=== PATIENT | female | born 1950 | race Caucasian/White ===

== ENCOUNTER → 2020-10-16 12:54 | Outpatient (CLI) | payer MEDICARE, MEDICAID, SELFPAY ==
--- NOTE | 2020-10-16 | DI.RAD.S_ITS ---
PROCEDURE: FL BARIUM SWALLOW W SPEECH INDICATIONS: Other specified symptoms and signs involving the c COMPARISON: None. TECHNIQUE: Examination was conducted in conjunction with speech pathology per standard protocol. In the lateral projection, filming was performed of the patient swallowing. AP projection filming may also be performed with patient swallowing. COMPARISON: FINDINGS: Function: The oral preparatory phase appears normal, with proper containment. The subsequent oral propulsive phase, pharyngeal phase, and esophageal phase of swallowing also appear normal with all proffered substances. No laryngotracheal penetration or aspiration. No pathologic vallecular pooling. Morphology: No cricopharyngeal bar is identified. No cervical esophageal webs. No Zenker's diverticulum. No strictures. IMPRESSION: No abnormality found. Please also refer to the dedicated speech therapy swallowing evaluation report, which will be independently generated. Dictated by: Raciel Reina M.D. on 10/16/2020 at 16:26 Approved by: Raciel Reina M.D. on 10/16/2020 at 16:27
--- NOTE | 2020-10-16 15:42 | ST.SWALLOW ---
Visit Care Team Role Provider Type Darya Knox Referring Provider Non-Staff Specialty: Massage Therapy Address: [address], [place], [address] Email: Manuel Blanco MD Primary Care Provider Non-Staff Specialty: Internal Medicine Address: [facility], [address] [place] [address] [address], [place], [address] Email: JACEK Juarez Attending Provider Speech Therapist Specialty: Speech Therapy Address: Phone: Fax: Email: Modified Barium Swallow Study [employer] Modified Barium Swallow Study Start: 10/16/20 14:03 Freq: Status: Active Protocol: Document 10/16/20 14:06 MG (Rec: 10/16/20 14:36 MG [id number]) Modified Barium Swallow Study Total Time Visit Start Time 13:25 Visit Stop Time 13:45 Total Visit Minutes 20 Visit Information Visit Number 1 Setting Setting Outpatient Care Patient Information Identification Type Name Patient History Pt is a 70 year old female who presents today for a modified barium swallow study (MBSS). Pt reports that she has been fearful of swallowing for over a year; she gets sensations of something stuck in her throat. Pt has modified her own diet and currently implementing safe swallowing strategies (i.e., minimize distractions, small bites/sips ). Pt reports that she feels fearful of eating as she has had instances in the past where she has coughed/choked on food. Pt currently tolerates thin liquids and a dysphagia mechanical diet. Subjective Observations Pt was sitting in chair placement for MBSS. Pt was agreeable to answering questions from the [employer]. Of note, pt was not wearing dentures at this time, reporting that she has tried them before and feels like there is no room in her mouth. Pt also has an enlarged tongue, as noted from OME performed. Pt reports that she has always had a larger tongue. Patient Positioning Position View Lateral Imaging Lateral View Textures Administered Trials Presented Thin Liquid via Spoon,Thin Liquid via Cup,[place] Liquid via Cup,Pudding Thick Liquid via Spoon Oral Phase Source: MBSIMP (TM) (C) Bolus Specific Scoring Grid Lip Closure WFL Tongue Control During Bolus Hold WFL Bolus Prep/Mastication WFL Bolus Transport/Lingual Motion WFL A/P Lingual Propulsion Delay No Oral Residue Moderate Impairment Residue Clearing Minimal Impairment Nasal Regurgitation No Additional Oral Phase Observations Formal OME was conducted prior to the MBSS. Pt's oral integrity appears in tact and she presents with adequate strength and range of motion. Of note, moderate oral residue was noted on most trials. When pt used a double swallow, oral residue was greatly diminished. Lip seal was adequate and bolus transport was WFL at this time. Mastication time of the bolus appeared to be WFL on pudding thick consistency. Regular texture was not trialed as pt was not wearing dentures. Pharyngeal Phase Source: MBSIMP (TM) (C) Bolus Specific Scoring Grid Delayed Initiation of Pharyngeal Swallow No Soft Palate Elevation WFL Tongue Base Strength/Range of Motion Mild Impairment Residue Along the Tongue Base Yes Clearance of Residue Along Tongue Base Minimal Impairment Laryngeal Elevation WFL Anterior Hyoid Movement WFL Epiglottic Range of Motion WFL Vallecular Residue Yes Clearance of Vallecular Residue Minimal Impairment Laryngeal Vestibular Closure WFL Pharyngeal Stripping Wave WFL Pharyngeal Contraction WFL Posterior Pharyngeal Wall Residue Yes Clearance of Posterior Pharyngeal Wall Minimal Impairment Residue Upper Esophageal Sphincter Opening WFL Residue in the Pyriform Sinuses No Esophageal Clearance Upright Position WFL Pharyngoesophageal Backflow Observed No Additional Pharyngeal Phase Observations Of note, the pt's epiglottis is very curved, but appeared to be WFL in protecting the airway on all trials. No aspiration or penetration occurred during this study. On most trials, pt had mild to moderate residue in the pharyngeal cavity. When pt used a double swallow, a majority of the residue was cleared. On trial of pudding thick consistency, a portion of the bolus escaped into the pharyngeal cavity prior to the initiation of the swallow. A/P View Esophageal Observations Esophageal Function Unreamarkable at this time. Clinical Impressions Dysphagia Type Mild dysphagia Findings Pt presents with mild dysphagia at this time. On trial of pudding thick consistency, a portion of the bolus entered the pharyngeal cavity, indicated there may be some mild base of tongue weakness occurring. Overall, no aspiration or penetration was noted on all trials and consistencies. Rehabilitation Potential Good Patient Appropriate for Therapy Yes Recommendations Diet Liquids Order Thin Diet Order Dysphagia Mechanical Medication Recommendation As Tolerated Aspiration Precautions Recommended Precautions Upright at 90 Degrees, Alternate Liquids/Solids,Small Bites/Sips,Double Swallow Treatment Plan Therapy Recommendations Outpatient Speech Therapy,Base of Tongue Exercises,Other Additional Therapy Recommendations Pt may be a candidate for orofacial myofunctional therapy Compensatory Strategies Recommendations Sitting Upright (90 deg), Double Swallow,Small Bites and Sips,Alternate Liquids/Solids Short Term Goals 1.Pt will participate in education re: the swallowing mechanism. 2.Pt will practice base of tongue exercises in order to increase the strength and reduction of the bolus escaping into the pharyngeal cavity prior to the initiation of the swallow. Intermediate Goals 1.Pt will tolerate least restrictive diet without demonstrating overt s/sx of aspiration. 2.Pt will report a reduction of fear surrounding eating/ drinking. Placement Recommendation After Discharge Home
== END ==
PROVIDERS: PCP Internal Medicine; Referring Provider Massage Therapist
DX: R09.89 Other specified symptoms and signs involving the circulatory and respiratory systems (principal); R13.10 Dysphagia, unspecified
CPT/HCPCS: 74230; 92611